=== PATIENT | male | born 1990 | race Caucasian/White ===

== ENCOUNTER 2017-01-07 11:43 | Emergency (ER) | payer MEDICAID ==
[2017-01-07 11:51] VITALS: BP 122/84
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
[2017-01-07] MEDS ORDERED: predniSONE 20 MG Tab PO ONE (12:22)
[2017-01-07] MEDS ORDERED: Albuterol 6.7 GM Inhaler INH ONE (12:25)
--- NOTE | 2017-01-08 08:58 | CR ---
Chest: Two views of the chest were obtained. Comparison: No previous chest x-ray. Heart size and mediastinum are within normal limits. Lungs are clear. Slight scoliosis is present within the spine. Impression: 1. Slight scoliosis. Nothing acute is identified on two-view chest x-ray. Diagnostic code #2
== END 2017-01-07 14:17 | disposition home or self-care (01) ==
LOC: JD.ED 11:43
DX: J40 Bronchitis, not specified as acute or chronic (principal); T78.49XA Other allergy, initial encounter; Z85.820 Personal history of malignant melanoma of skin; Z85.05 Personal history of malignant neoplasm of liver; Z85.528 Personal history of other malignant neoplasm of kidney; Z85.841 Personal history of malignant neoplasm of brain; Z98.890 Other specified postprocedural states; Z88.0 Allergy status to penicillin
CPT/HCPCS: 71020; 94664; 99284; A9270; 99283

== ENCOUNTER 2017-05-01 10:59 | Emergency (ER) | payer MEDICAID ==
[2017-05-01 11:16] VITALS: BP 120/83
[2017-05-01] MEDS ORDERED: Ketorolac 60 MG/2 ML SDV IM ONE (11:46)
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
== END 2017-05-01 12:25 | disposition home or self-care (01) ==
LOC: JD.ED 10:59
DX: R51 Headache (principal); C43.9 Malignant melanoma of skin, unspecified; Z88.0 Allergy status to penicillin
CPT/HCPCS: 96372; 99284; J1885; 99283

== ENCOUNTER 2017-09-14 09:15 | Emergency (ER) | payer MEDICAID ==
[2017-09-14 09:26] VITALS: BP 134/89
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
--- NOTE | 2017-09-14 10:17 | CT ---
Head CT Technique: Multiple axial sections through the brain were obtained. Intravenous contrast was not utilized. Comparison: No previous study. Findings: Diffuse mucosal thickening is seen throughout the paranasal sinuses. There is a defect being seen within the inner table of the left frontal sinus with connection to the frontal lobe. No abnormal parenchymal densities are seen. No evidence of intracranial hemorrhage. No midline shift or mass effect is seen. Bone window settings were reviewed which shows the inner table defect within the frontal sinus. Diffuse sinus disease is noted. No other acute calvarial abnormality is seen. Impression: 1. Diffuse sinus disease which will be further described on sinus study. There is an inner table wall defect causing communication of the brain to the left frontal sinus. No adjacent abnormal brain densities are seen. 2. Other portions of the noncontrast head CT are unremarkable. Diagnostic code #5
--- NOTE | 2017-09-14 10:22 | CT ---
CT paranasal sinuses Technique: Multiple axial sections through the paranasal sinuses were obtained. Reconstructed coronal and sagittal images were reviewed. Comparison: No prior sinus study. Findings: Severe mucosal thickening is seen within both maxillary sinuses. Possible air-fluid level within the left maxillary sinus is noted. Opacified ethmoid and frontal sinuses are noted. Near complete opacification of the sphenoid sinus is noted. There is a defect within the inner table of the left frontal sinus measuring about 1.8 cm causing direct connection to the brain. There is also loss of the superior orbital roof with extra soft tissue density being seen within the upper left orbit. Impression: 1. Severe sinus disease. Difficult to exclude neoplasm or fungal disease given the bony defects within the superior left orbital roof as well as along the inner table of the left frontal sinus. 2. Soft tissue density extends from the left frontal sinus into the superior orbit on the left side. 3. Possible air-fluid level within the left maxillary sinus. Diagnostic code #5
[2017-09-14] MEDS ORDERED: Sodium Chloride 0.9% 10 ML Syringe FLUSH PRN (11:56)
[2017-09-14] MEDS ORDERED: Acetaminophen/HYDROcodone 325-5 MG Tab PO ONE (12:22)
[2017-09-14] MEDS ORDERED: Gadobenate Dimeglumine 529 MG/ML 15 ML SDV IVPUSH ONE (13:05)
[2017-09-14] MEDS ORDERED: Sodium Chloride 0.9% 10 ML Syringe FLUSH SCH (13:15)
--- NOTE | 2017-09-14 14:44 | MR ---
MRI brain (without and with intravenous contrast) Technique: T1 sagittal; T2, T2 FLAIR, diffusion, T1 axial and T1 FLAIR coronal; post-gadolinium T1 axial and post-gadolinium T1 FLAIR coronal images were obtained. Findings: Diffuse sinus disease again noted which extends of the nasal cavity. There is protrusion of the frontal sinus disease through the left orbital roof into the orbital cavity by about 9 mm. There is additional protrusion to the posterior sinus wall by about 4 mm slightly compressing the frontal lobe. No intracranial abnormalities are otherwise seen. Minimal increased signal within the subcortical white matter is seen within the frontal lobes which is nonspecific but can be seen with multiple white matter etiologies including chronic migraine headaches. There are no areas of abnormal enhancement within the brain parenchyma. No acute diffusion abnormalities are seen within the brain. Impression: 1. Severe sinus disease extending into both nasal cavities. Differential includes mucoceles/aggressive bacterial infection as well as less likely neoplasm and fungal infections. 2. There is protrusion of the sinus disease into the superior left orbit by about 9 mm and protrusion into the left frontal lobe by about 4 mm. 3. Slight areas of increased signal within the subcortical white matter within both frontal regions which is nonspecific with large differential. No abnormal enhancement seen within the brain parenchyma in this subcortical signal is likely chronic. 4. No additional abnormality is seen on MRI study of the brain. Diagnostic code #5
== END 2017-09-14 15:30 | disposition home or self-care (01) ==
LOC: JD.ED 09:15
DX: H02.402 Unspecified ptosis of left eyelid (principal); J32.9 Chronic sinusitis, unspecified; Z88.1 Allergy status to other antibiotic agents; Z87.891 Personal history of nicotine dependence
CPT/HCPCS: 70450; 70486; 70553; 99284; A9270; A9577; J7050

== ENCOUNTER 2019-05-17 13:51 | Emergency (ER) | payer OTHER, BC ==
[2019-05-17 14:02] VITALS: PULSE 103
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
[2019-05-17 15:35] VITALS: BP 122/81
--- NOTE | 2019-05-17 16:11 | CR ---
Cervical spine: AP, lateral and odontoid views of the cervical spine were obtained. Comparison: No previous cervical spine imaging. Vertebral body heights and disc spaces are preserved. Prevertebral soft tissues are normal. Slight scoliosis is noted. No subluxation or fracture is seen. Impression: 1. Slight scoliosis. 2. Three-view cervical spine study is otherwise unremarkable. Diagnostic code #2 This report was dictated in [place] Standard Time
--- NOTE | 2019-05-17 16:12 | CR ---
Sacrum and coccyx: Three views of the sacrum and coccyx were obtained. Comparison: No previous study. No fracture or other bony abnormality is seen. Sacroiliac joints appear within normal limits. Impression: 1. No abnormality is seen on three-view sacrum and coccyx study. Diagnostic code #1 This report was dictated in [place] Standard Time
== END 2019-05-17 15:25 | disposition home or self-care (01) ==
LOC: JD.ED 13:51
DX: S06.0X9A Concussion with loss of consciousness of unspecified duration, initial encounter (principal); S16.1XXA Strain of muscle, fascia and tendon at neck level, initial encounter; M53.3 Sacrococcygeal disorders, not elsewhere classified; F17.210 Nicotine dependence, cigarettes, uncomplicated; Z85.828 Personal history of other malignant neoplasm of skin; Z88.0 Allergy status to penicillin; W00.9XXA Unspecified fall due to ice and snow, initial encounter
CPT/HCPCS: 72040; 72040-26; 72220; 72220-26; 99283; 99283-25

== ENCOUNTER 2021-03-25 19:18 | Emergency (ER) | payer SELFPAY ==
[2021-03-25] MEDS ORDERED: Ibuprofen 600 MG Tab PO ONE (20:03)
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
[2021-03-25 20:55] LABS: CORONAVIRUS COVID-19 NAA POSITIVE (NEGATIVE)
[2021-03-25 22:13] VITALS: BP 107/81; PULSE 88
== END 2021-03-25 22:15 | disposition home or self-care (01) ==
LOC: JD.ED 19:18
DX: U07.1 COVID-19 (principal); Z88.0 Allergy status to penicillin
CPT/HCPCS: 0240U; 36415; 80053; 85025; 86140; 99284; A9270

== ENCOUNTER 2022-05-01 16:10 | Emergency (ER) | payer BC ==
[2022-05-01 16:45] VITALS: BP 117/80; PULSE 82
[2022-05-01 17:32] LABS: CORONAVIRUS COVID-19 NAA NEGATIVE (NEGATIVE)
== END 2022-05-01 18:11 | disposition home or self-care (01) ==
LOC: JD.ED 16:10
DX: J10.1 Influenza due to other identified influenza virus with other respiratory manifestations (principal); J45.909 Unspecified asthma, uncomplicated; N18.4 Chronic kidney disease, stage 4 (severe); F17.210 Nicotine dependence, cigarettes, uncomplicated; Z88.0 Allergy status to penicillin; Z79.899 Other long term (current) drug therapy; Z20.822 Contact with and (suspected) exposure to COVID-19
CPT/HCPCS: 0241U; 99283

== ENCOUNTER 2024-04-16 17:30 | Emergency (ER) | payer BC ==
[2024-04-16 22:06] LABS: BASOPHILS ABSOLUTE AUTO 0.1 K/mm3 (0.0-0.2); BASOPHILS PERCENT AUTO 0.4 % (0.0-1.0); EOSINOPHILS ABSOLUTE AUTO 0.2 K/mm3 (0.0-0.4); EOSINOPHILS PERCENT AUTO 1.6 % (0.0-6.0); HEMATOCRIT 35.5 % (42.0-52.0); HEMOGLOBIN 12.2 gm/dl (14.0-18.0); IMMATURE GRAN ABSOLUTE AUTO 0.06 K/mm3 (0.00-0.05); IMMATURE GRAN PERCENT AUTO 0.5 % (0.0-0.4); LYMPHOCYTES ABSOLUTE AUTO 1.4 K/mm3 (1.0-4.8); MEAN CORPUSCULAR HGB CONC 34.4 g/dl (32.0-36.0); MEAN CORPUSCULAR VOLUME 90.1 fl (83.0-99.0); MEAN PLATELET VOLUME 9.7 fl (9.4-12.4); MONOCYTES ABSOLUTE AUTO 1.2 K/mm3 (0.0-0.8); MONOCYTES PERCENT AUTO 9.1 % (0.0-8.0); NEUTROPHILS ABSOLUTE AUTO 9.9 K/mm3 (1.8-7.7); NEUTROPHILS PERCENT AUTO 77.4 % (41.0-71.0); PLATELET COUNT,PLT 348 K/mm3 (150-400); RED BLOOD CELL COUNT 3.94 M/mm3 (4.52-5.90); WHITE BLOOD CELL COUNT,WBC 12.78 K/mm3 (3.9-11.3)
[2024-04-16 22:30] LABS: A/G RATIO 1.3 (1-2); ALBUMIN 3.9 g/dl (3.4-5.0); ANION GAP 11.5 (5-15); BILIRUBIN TOTAL 0.6 mg/dL (0.2-1.0); BUN/CREATININE RATIO 13.3 (14-18); CALCIUM 9.3 mg/dL (8.5-10.1); CREATININE 0.9 mg/dL (0.7-1.3); EST CRCL DRUG DOSING (CG) 114.81 mL/min; POTASSIUM,K 3.5 mEq/L (3.5-5.1)
[2024-04-17 00:03] LABS: APPEARANCE,URINE CLEAR (Clear); BILIRUBIN,URINE NEGATIVE (Negative); COLOR,URINE YELLOW (Yellow); GLUCOSE,URINE NEGATIVE (Negative); KETONES,URINE NEGATIVE (Negative); LEUKOCYTE ESTERASE,URINE 1+ (Negative); NITRITE,URINE NEGATIVE (Negative); OCCULT BLOOD,URINE TRACE-INTACT (Negative); PH,URINE 6.5 (5.0-8.0); PROTEIN,URINE TRACE (Negative)
[2024-04-17 00:06] VITALS: BP 123/81; PULSE 89
[2024-04-17 00:10] LABS: BARBITURATE SCREEN,URINE NEGATIVE (CUTOFF=200); BENZODIAZEPINES SCREEN,URINE NEGATIVE (CUTOFF=150); BUPRENORPHINE SCREEN,URINE NEGATIVE (CUTOFF=10); METHADONE SCREEN, URINE NEGATIVE (CUT0FF=200); METHAMPHETAMINES SCREEN, URINE PRESUMPTIVE POSITIVE (CUTOFF=500); OXYCODONE SCREEN,URINE NEGATIVE (CUT0FF=100); THC SCREEN,URINE 20 NG/ML NEGATIVE (CUTOFF=50)
[2024-04-17 00:27] LABS: BACTERIA,URINE FEW /hpf (FEW); EPITHELIAL CELLS,URINE 0-5 /hpf (0-5); MUCUS,URINE FEW /hpf (FEW); RBC,URINE 0-5 /hpf (0-5); WBC,URINE 30-40 /hpf (0-5)
[2024-04-17 00:29] LABS: AMPHETAMINES SCREEN, URINE PRESUMPTIVE POSITIVE (CUTOFF=500)
== END 2024-04-17 00:12 | disposition home or self-care (01) ==
LOC: JD.ED 17:30
DX: Z00.00 Encounter for general adult medical examination without abnormal findings (principal); Z79.51 Long term (current) use of inhaled steroids; Z88.0 Allergy status to penicillin
CPT/HCPCS: 36415; 80053; 80306; 81001; 85025; 87086; 93005; 93010; 99283; 99284